=== PATIENT | male | born 1965 | race Hispanic/Latino ===

== ENCOUNTER → 2018-07-06 | Day surgery (SDC) | payer OTHER ==
[~2018-07-06] MED LIST: ATORVASTATIN CA20 MG PO; MIDAZOLAM HCL 2 MG/2 ML VIAL ONE; PROPOFOL IV EMULSION 10 MG/ML 50 ML VIAL ONE
--- OUTSIDE RECORDS SUMMARY | 2018-07-06 08:35 | XMS REPORT ---
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 Conditions or Problems Problem Name Problem Code Onset Date Status Entry Date Provider Comment Standard Description Annotate Blood in stools 578.1 Active Oralia Dempsey SQU[place] BOSS Blood in stool Colon Cancer Screening V76.51 Active Oralia TEAGUEP Screening for malignant neoplasms of colon Diabetes mellitus type II 250.00 Active Oralia TEAGUEP Diabetes mellitus without mention of complication, type II or unspecified type, not stated as uncontrolled Erectile dysfunction 607.84 Active Oralia TEAGUEP Impotence of organic origin Prostate cancer screening V76.44 Active Oralia TEAGUEP Screening for malignant neoplasms of prostate Screening, diabetes mellitus V77.1 Active Anni Heard MD Screening for diabetes mellitus Annual exam V72.31 Active Keturah Milner MD Routine gynecological examination Hyperlipidemia 272.4 Active Keturah Milner MD Other and unspecified hyperlipidemia Overweight Active Keturah Milner MD Overweight Medication List Medication Instructions Start Date Stop Date Generic Name NDC Status Provider Patient Instruction CIALIS 10 MG ORAL TABLET 1 by mouth 1 hour before onset of sexual activity TADALAFIL 20338046282 Active Oralia TEAGUEP Active SIMVASTATIN 40MG TAB TAKE ONE TABLET BY MOUTH AT BEDTIME SIMVASTATIN 69971712057 Active Oralia TEAGUEP Active Vital Signs Date Name Value Unit Range Description blood pressure, diastolic 82 mm[Hg] BP torres blood pressure, systolic 126 mm[Hg] BP sys height E&M 66 [in_us] Bdy height pulse rate E&M 67 /min Heart rate respiratory rate E&M 18 /min Resp rate temperature E&M 98.2 [degF] Body temperature weight E&M 175 [lb_av] Weight Measured Diagnostic Results Date Name Value Unit Range Description Lab Report: CBC With Differential/Platelet, Comp. Metabolic Panel (14), ... - Hematology hematocrit, blood 48.0 % 37.5-51.0 Lab Report: CBC With Differential/Platelet, Comp. Metabolic Panel (14), ... - Chemistry sodium, serum 144 mmol/L 134-144 Lab Report: CBC With Differential/Platelet, Comp. Metabolic Panel (14), ... - Hematology neutrophils as percent of blood leukocytes 54 % Not Estab. basophils as percent of blood leukocytes 1 % Not Estab. Lab Report: CBC With Differential/Platelet, Comp. Metabolic Panel (14), ... - Chemistry very low density lipoproteins 32 mg/dL 5-40 testosterone, total 473 ng/dL 366-859 6108/01/31 carbon dioxide, venous blood 25 mmol/L 20-29 chloride, serum 103 mmol/L 96-106 triglyceride, serum, fasting 162 mg/dL 0-149 calcium, serum 9.6 mg/dL 8.7-10.2 urea nitrogen, blood 13 mg/dL 6-24 alanine aminotransferase (SGPT), serum 29 U/L 0-44 Lab Report: CBC With Differential/Platelet, Comp. Metabolic Panel (14), ... - Hematology mean corpuscular hemoglobin, RBC 31.4 pg 26.6-33.0 mean corpuscular hemoglobin concentration, RBC 34.2 G/DL % 31.5-35.7 Lab Report: CBC With Differential/Platelet, Comp. Metabolic Panel (14), ... - Chemistry protein, total, serum 7.3 g/dL 6.0-8.5 alkaline phosphatase, serum 87 U/L 39-117 Lab Report: CBC With Differential/Platelet, Comp. Metabolic Panel (14), ... - Hematology erythrocyte (RBC) count 5.23 X10E6/UL 10*6/mm3 4.14-5.80 hemoglobin, blood 16.4 g/dL 13.0-17.7 Lab Report: CBC With Differential/Platelet, Comp. Metabolic Panel (14), ... - Chemistry Absolute Neutrophils 2.4 X10E3/UL 10*3/uL 1.4-7.0 LDL cholesterol, serum 182 mg/dL 0-99 urea nitrogen/creatinine ratio, serum 17 9-20 Lab Report: CBC With Differential/Platelet, Comp. Metabolic Panel (14), ... - Hematology lymphocytes as percent of blood leukocytes 37 % Not Estab. Lab Report: CBC With Differential/Platelet, Comp. Metabolic Panel (14), ... - Chemistry hemoglobin A1C, blood, as % of total hemoglobin 5.6 % 4.8-5.6 Lab Report: CBC With Differential/Platelet, Comp. Metabolic Panel (14), ... - Hematology mean corpuscular volume, RBC 92 fL 79-97 Lab Report: CBC With Differential/Platelet, Comp. Metabolic Panel (14), ... - Chemistry HDL cholesterol, serum 41 mg/dL >39 Lab Report: CBC With Differential/Platelet, Comp. Metabolic Panel (14), ... - Genetics/fertility eGFR if 120 mL/min/1.73m2 >59 Lab Report: CBC With Differential/Platelet, Comp. Metabolic Panel (14), ... - Hematology basophil count, absolute 0.0 x10E3/uL 0.0-0.2 monocytes as percent of blood leukocytes 7 % Not Estab. Lab Report: CBC With Differential/Platelet, Comp. Metabolic Panel (14), ... - Chemistry globulin, serum 2.8 1.5-4.5 albumin/globulin ratio, serum 1.6 1.2-2.2 Estimated Glomerular Filtration Rate (calc) 104 mL/min/1.73m2 >59 creatinine, serum 0.75 mg/dL 0.76-1.27 testosterone, serum, free 9.2 pg/mL 7.2-24.0 cholesterol, serum 255 mg/dL [phone]/01/31 bilirubin, serum, total 0.2 mg/dL 0.0-1.2 Lab Report: CBC With Differential/Platelet, Comp. Metabolic Panel (14), ... - Hematology Eosinophil Absolute Count 0.0 X10E3/UL 10*3/uL 0.0-0.4 eosinophils as percent of blood leukocytes 1 % Not Estab. Lab Report: CBC With Differential/Platelet, Comp. Metabolic Panel (14), ... - Chemistry blood glucose, random 106 mg/dL 65-99 aspartate aminotransferase (SGOT), serum 17 U/L 0-40 Lab Report: CBC With Differential/Platelet, Comp. Metabolic Panel (14), ... - Hematology red blood cell distribution width 13.2 % 12.3-15.4 Lab Report: CBC With Differential/Platelet, Comp. Metabolic Panel (14), ... - Chemistry prostate specific antigen 0.7 ng/mL 0.0-4.0 Lab Report: CBC With Differential/Platelet, Comp. Metabolic Panel (14), ... - Hematology leukocyte count, blood 4.3 X10E3/UL 10*3/mm3 3.4-10.8 Lab Report: CBC With Differential/Platelet, Comp. Metabolic Panel (14), ... - Chemistry potassium, serum 4.3 mmol/L 3.5-5.2 Lab Report: CBC With Differential/Platelet, Comp. Metabolic Panel (14), ... - Hematology monocyte count, blood, automated 0.3 X10E3/UL 10*3/uL 0.1-0.9 Lab Report: CBC With Differential/Platelet, Comp. Metabolic Panel (14), ... - Chemistry albumin, serum 4.5 g/dL 3.5-5.5 immature granulocytes, percentage of total cells, blood 0 % Not Estab. Lab Report: CBC With Differential/Platelet, Comp. Metabolic Panel (14), ... 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
[2018-07-06 10:50] VITALS: BP 110/78
== END | disposition home or self-care (01) ==
LOC: OR 08:31
PROVIDERS: ATTEND Internal Medicine Gastroenterology
DX: Z12.11 Encounter for screening for malignant neoplasm of colon (principal); D12.2 Benign neoplasm of ascending colon; D12.4 Benign neoplasm of descending colon; D12.5 Benign neoplasm of sigmoid colon; R19.5 Other fecal abnormalities; K57.30 Diverticulosis of large intestine without perforation or abscess without bleeding; K64.8 Other hemorrhoids; E78.5 Hyperlipidemia, unspecified; Z01.810 Encounter for preprocedural cardiovascular examination
CPT/HCPCS: 45384; 45385; 93005; J2250; J2704; 45378